=== PATIENT | female | born 1985 ===

== ENCOUNTER 2017-07-02 08:24 | Inpatient (IN) | payer OTHER ==
[2017-07-02 08:35] VITALS: BMI 25.0
[2017-07-02] MEDS ORDERED: AMPicillin 2 GM in Sodium Chloride 0.9% 100 ML IVPB ONE (08:41)
[2017-07-02] MEDS ORDERED: AMPicillin 1 GM in Sodium Chloride 0.9% 100 ML IVPB SCH (09:00)
[2017-07-02 09:40] LABS: BASO % 0.3 % (0.0-2.0); EOS % 0.2 % (0.0-4.0); HEMATOCRIT 39.5 % (34.0-47.0); LYMPH # 1.5 K/uL (1.0-4.3); LYMPH % 12.8 % (20.0-40.0); MEAN CELL VOLUME 102.3 fl (81.0-99.0); MEAN CORPUSCULAR HEMOGLOBIN 35.6 pg (27.0-31.0); MEAN CORPUSCULAR HGB CONC 34.8 g/dL (33.0-37.0); MEAN PLATELET VOLUME 8.7 fl (7.2-11.7); MONO # 0.4 K/uL (0.0-0.8); MONO % 3.3 % (0.0-10.0); NEUT # 9.5 K/uL (1.8-7.0); NEUT % 83.4 % (50.0-75.0); NRBC % 0.1 % (0.0-0.0); RED CELL DISTRIBUTION WIDTH 13.2 % (11.5-14.5); WHITE BLOOD COUNT 11.4 K/uL (4.8-10.8)
[2017-07-02] MEDS ORDERED: Lactated Ringer's 1,000 ML IV SCH (11:45)
--- NOTE | 2017-07-02 13:16 | OBADHP ---
Datetime: 07/02/2017 09:30 Admit Comment, IP Provider: On 07/01 at 0800 patient states "trickling of fluid" that she again felt at noon and 1730. In office confirmed rupture of membranes with +ferning and vaginal pooling. No s/s of infection. Pt having irregular contractions. Sent home, pt presents on 07/02 stating contractions every 6-8 mins since 0300. Pelvic Type - PN: Adequate Extremities - PN: Normal Abdomen - PN: Normal Back - PN: Normal Breast - PN: Normal Lungs - PN: Normal Heart - PN: Normal Thyroid - PN: Normal Neurologic - PN: Normal HEENT - PN: Normal General - PN: Normal Weight - Estimated: 3600 Presentation-Admit: Vertex FHR - Baseline A Provider: 150 Amniotic Fluid Color, Provider: Clear Membranes, Provider: Ruptured Gestation - Est Wks by US: 39.3 IP Chief Complaint: Uterine contractions NICHD Variability Prov Fetus A: Moderate 6-25bpm NICHD Accel Fetus A IP Provider: 15X15 FHR Category Provider Fetus A: Category I NICHD Decel Fetus A IP Provider: None Dilatation, Provider: 6 Effacement, Provider: 100 Station, Provider: -1 Genitourinary Exam: Normal DTRs - PN: Normal EGA AdmitDate IP: 39.3 IP Adm Impression: Term, intrauterine IP Admit Plan: Initiate labor protocol
[2017-07-02] MEDS ORDERED: Oxytocin 30 units/LR 500ML 30 U/500 ML BAG IV ONE (13:17)
--- NOTE | 2017-07-02 13:24 | OBPN ---
Datetime: 07/02/2017 11:15 IP Progress Impression: Normal progression of labor IP Progress Plan: Continue present management IP Progress Note Comment: Patient out of tub and using nitrous oxde intermittently. Datetime: 07/02/2017 09:30 IP Procedures: Sterile Vag Exam Membranes, Provider: Ruptured Amniotic Fluid Color, Provider: Clear FHR - Baseline A Provider: 150 Gestation - Est Wks by US: 39.3 Weight - Estimated: 3600 Presentation-Admit: Vertex Vital Signs Provider: Within Normal Limits NICHD Accel Fetus A IP Provider: 15X15 FHR Category Provider Fetus A: Category I NICHD Variability Prov Fetus A: Moderate 6-25bpm Dilatation, Provider: 6 Effacement, Provider: 100 Station, Provider: -1 NICHD Decel Fetus A IP Provider: None
--- NOTE | 2017-07-02 13:27 | OBPN ---
Datetime: 07/02/2017 11:15 IP Progress Note Comment: Patient out of tub into bed and using nitrous oxde intermittently.
[2017-07-02] MEDS ORDERED: Oxytocin 30 UNITS in Sodium Chloride 0.9% 500 ML IV SCH (13:30)
[2017-07-02] MEDS ORDERED: Lidocaine 1% Inj (20ml) ONE (17:04)
--- NOTE | 2017-07-02 17:55 | OBDS ---
DELIVERY PERSONNEL Nurse [employer] Certified: Chanel Perrin CNM [employer]: Mary Hopson RN MATERNAL INFORMATION Delivery Anesthesia: Local Medications in Delivery: Ampcillin Estimated Blood Loss (ml): 350 Placenta Cultured: No Maternal Complications: None Provider Comments: SROM @0800 x 32 hours. Viable male delivered under no anesthesia. wit h compound presentation of left hand over intact perineum in TONI. Shoulders and body delivered with m aternal effort. Pitocin IV administered for active management of the third stage. Delayed cord clampi ng for 4 mins. Cord blood obtained from 3VC. to maternal abdomen. Placenta delivered. Lacerati on repaired as stated above. EBL 350cc. LABOR SUMMARY EDC: 07/06/2017 00:00 No. Babies in Womb: 1 Labor Anesthesia: None LABOR INFORMATION Reason for Induction: Not Applicable Onset of Labor: 07/01/2017 08:00 Complete Dilatation: 07/02/2017 15:15 Oxytocin: N/A Group B Beta Strep: Negative (Annotations: 06/13/2017) Steroids Given: None Reason Steroids Not Administered: Not Applicable MEMBRANES Membranes Rupture Method: Spontaneous Rupture of Membranes: 07/01/2017 08:00 Length of Rupture (hrs): 32.75 Amniotic Fluid Color: Clear Amniotic Fluid Amount: Moderate Amniotic Fluid Odor: Normal STAGES OF LABOR Stage 1 hrs: 31 Stage 1 min: 15 Stage 2 hrs: 1 Stage 2 min: 30 Stage 3 hrs: 0 Stage 3 min: 11 Total Time in Labor hrs: 32 Total Time in Labor min: 56 VAGINAL DELIVERY Episiotomy: None Laceration Extension: N/A Other Laceration: right sub labial laceration Laceration Repair: Yes Laceration Repair Note: Right sub labial tear identified. Lidocaine cream applied and 6 cc of 1% lid ocaine injected. Repaired tear with 3-0 vicryl for approximation of tissue. Initial Vag Sponge Count: 10 Final Vag Sponge Count: 10 Initial Vag Sharps Count: 3 Final Vag Sharps Count: 3 Sponge Count Correct: Yes Sharps Count Correct: Yes BABY A INFORMATION Delivery Date/Time: 07/02/2017 16:45 Method of Delivery: Vaginal Born in Route : No : N/A Forceps: N/A Vacuum Extraction: N/A Shoulder Dystocia : No ASSISTED DELIVERY BABY A Station Vacuum/Forcep Apply: SHOULDER DYSTOCIA BABY A Infant Delivery Date/Time: 07/02/2017 16:45 PRESENTATION/POSITION BABY A Presentation: Cephalic PLACENTA INFORMATION BABY A Placenta Delivery Time : 07/02/2017 16:56 Placenta Method of Delivery: Spontaneous Placenta Status: Delivered SCORES BABY A Heart Rate 1 min: >100 bpm Resp Effort 1 min: Good Cry Reflex Irritability 1 min: Cough or Sneeze or Pulls Away Muscle Tone 1 min: Active Motion Color 1 min: Body [place], Extremities Blue Resuscitation Effort 1 min: Tactile Stimulation SCORE 1 MIN: 9 Heart Rate 5 min: >100 bpm Resp Effort 5 min: Good Cry Reflex Irritability 5 min: Cough or Sneeze or Pulls Away Muscle Tone 5 min: Active Motion Color 5 min: Body [place], Extremities Blue Resuscitation Effort 5 min: N/A SCORE 5 MIN: 9 INFORMATION BABY A Gestational Age at Delivery: 39.0 Gestational Status: Term Infant Outcome : Liveborn Condition : Stable Infant Sex: Male CORD INFORMATION BABY A No. Cord Vessels: 3 Nuchal Cord : N/A Cord Blood Taken: Yes
[2017-07-02] MEDS ORDERED: Benzocaine/Menthol SPRAY TOP PRN (19:07)
[2017-07-02] MEDS: Benzocaine/Menthol SPRAY TOP PRN (22:02)
[2017-07-03 06:53] LABS: BASO % 0.2 % (0.0-2.0); EOS % 0.3 % (0.0-4.0); HEMATOCRIT 32.4 % (34.0-47.0); LYMPH % 12.1 % (20.0-40.0); MEAN CELL VOLUME 102.8 fl (81.0-99.0); MEAN CORPUSCULAR HGB CONC 35.1 g/dL (33.0-37.0); MEAN PLATELET VOLUME 8.3 fl (7.2-11.7); MONO # 0.8 K/uL (0.0-0.8); MONO % 5.2 % (0.0-10.0); NEUT # 13.3 K/uL (1.8-7.0); NEUT % 82.2 % (50.0-75.0); NRBC % 0.1 % (0.0-0.0); RED CELL DISTRIBUTION WIDTH 13.6 % (11.5-14.5); WHITE BLOOD COUNT 16.2 K/uL (4.8-10.8)
--- NOTE | 2017-07-03 14:19 | OBDS ---
DELIVERY PERSONNEL Nurse Environmental Health Nurse Certified: Chanel Perrin CNM Clinical Informaticist: Mary Hopson RN MATERNAL INFORMATION Delivery Anesthesia: Local Medications in Delivery: Ampcillin Estimated Blood Loss (ml): 350 Placenta Cultured: No Maternal Complications: None RN Comments: patient delivered viable male. baby was clamped and placed on mother's chest for skin to skin. pt was repaired for erik lac. pitocin 20units infusing and cytotec 400mcg g iven PO. infant remained in stable condition, apgars were 9 and 9. patient remained in stable condition, VSS. Provider Comments: SROM @0800 x 32 hours. Viable male infant delivered under no anesthesia. wit h compound presentation of left hand over intact perineum in TONI. Shoulders and body delivered with m aternal effort. Pitocin IV administered for active management of the third stage. Straight catheter d rained 200 cc of urine. Delayed cord clamping for 4 mins. Cord blood obtained from 3VC. to mat ernal abdomen. Placenta delivered. Laceration repaired as stated above. EBL 350cc. LABOR SUMMARY EDC: 07/06/2017 00:00 EDC: 07/06/2017 00:00 No. Babies in Womb: 1 Labor Anesthesia: None LABOR INFORMATION Reason for Induction: Not Applicable Onset of Labor: 07/01/2017 08:00 Complete Dilatation: 07/02/2017 15:15 Oxytocin: N/A Group B Beta Strep: Negative (Annotations: 06/13/2017) Steroids Given: None Reason Steroids Not Administered: Not Applicable MEMBRANES Membranes Rupture Method: Spontaneous Rupture of Membranes: 07/01/2017 08:00 Length of Rupture (hrs): 32.75 Amniotic Fluid Color: Clear Amniotic Fluid Amount: Moderate Amniotic Fluid Odor: Normal STAGES OF LABOR Stage 1 hrs: 31 Stage 1 min: 15 Stage 2 hrs: 1 Stage 2 min: 30 Stage 3 hrs: 0 Stage 3 min: 11 Total Time in Labor hrs: 32 Total Time in Labor min: 56 VAGINAL DELIVERY Episiotomy: None Laceration Extension: N/A Other Laceration: right sub labial laceration Laceration Repair: Yes Laceration Repair Note: Right sub labial tear identified. Lidocaine cream applied and 6 cc of 1% lid ocaine injected. Repaired tear with 3-0 vicryl for approximation of tissue. Initial Vag Sponge Count: 10 Final Vag Sponge Count: 10 Initial Vag Sharps Count: 3 Final Vag Sharps Count: 3 Sponge Count Correct: Yes Sharps Count Correct: Yes BABY A INFORMATION Delivery Date/Time: 07/02/2017 16:45 Method of Delivery: Vaginal Born in Route : No : N/A Forceps: N/A Vacuum Extraction: N/A Shoulder Dystocia : No ASSISTED DELIVERY BABY A Station Vacuum/Forcep Apply: Station Vacuum/Forcep Apply: Station Vacuum/Forcep Apply: Station Vacuum/Forcep Apply: Station Vacuum/Forcep Apply: Station Vacuum/Forcep Apply: Station Vacuum/Forcep Apply: Station Vacuum/Forcep Apply: Station Vacuum/Forcep Apply: Station Vacuum/Forcep Apply: Station Vacuum/Forcep Apply: SHOULDER DYSTOCIA BABY A Delivery Date/Time: 07/02/2017 16:45 PRESENTATION/POSITION BABY A Presentation: Cephalic PLACENTA INFORMATION BABY A Placenta Delivery Time : 07/02/2017 16:56 Placenta Method of Delivery: Spontaneous Placenta Status: Delivered SCORES BABY A Heart Rate 1 min: >100 bpm Resp Effort 1 min: Good Cry Reflex Irritability 1 min: Cough or Sneeze or Pulls Away Muscle Tone 1 min: Active Motion Color 1 min: Body [place], Extremities Blue Resuscitation Effort 1 min: Tactile Stimulation SCORE 1 MIN: 9 Heart Rate 5 min: >100 bpm Resp Effort 5 min: Good Cry Reflex Irritability 5 min: Cough or Sneeze or Pulls Away Muscle Tone 5 min: Active Motion Color 5 min: Body [place], Extremities Blue Resuscitation Effort 5 min: N/A SCORE 5 MIN: 9 INFANT INFORMATION BABY A Gestational Age at Delivery: 39.0 Gestational Status: Term Infant Outcome : Liveborn Condition : Stable Sex: Male WEIGHT/LENGTH BABY A Infant Birthweight (gms): 3310 Infant Weight (lb): 7 Weight (oz): 5 CORD INFORMATION BABY A No. Cord Vessels: 3 Nuchal Cord : N/A Cord Blood Taken: Yes
--- NOTE | 2017-07-03 15:17 | OBPPN ---
Datetime: 07/03/2017 15:07 PP Pain Prov: Within normal limits PP Nausea Prov: Denies PP Flatus Prov: Yes PP BM Prov: No PP Breasts Prov: Normal PP Heart Prov: Normal PP Lungs Prov: Normal PP Abdomen/Uterus Prov: Normal PP Lochia Prov: Normal PP Vulva/Perineum Prov: Normal PP CVA Tenderness Prov: Not Done PP Extremities Prov: Normal PP C/S Incision Prov: Not Applicable PP Progress Prov: Normal PP Comments Phys Exam Prov: Uterus is firm and 2 fingerbreaths below the umbilicus. No cracking of n ipples present. PP Impression Prov: Normal progression PP Plan Prov: Continue present management; consult; Discharge PP Plan Other Prov: pt requesting database reporting consultant for latch pain; DC in AM PP Progress Note Prov: Patient is ambulating and denies dizziness or SOB with activity or rest. Jacqueline stfeeding well on both breasts with mildly painful latch and requesting database reporting consultant to asses s. Encouraged to empty bladder and breastfeed every 2-3 hours. IP PP Procedures: None Vital Signs Provider PP: Reviewed; Within Normal Limits
--- NOTE | 2017-07-03 15:27 | OBDCSUM ---
Datetime: 07/03/2017 15:16 Discharged to, Provider: Home Follow up at, Provider: [facility] [place] Disch Instr Activity: Normal activity Disch Instr Diet: Regular Discharge Instructions, Provider: Routine instructions given Discharge Diagnosis, Provider: Term Delivered; PROM - Indicate X Hours Discharge Time: 07/04/2017 08:00 Follow up in weeks, Provider: 1 week; 6 weeks Disch Referrals: None Contraception discussed, Prov: Yes Disch Activity Restrictions: No exercising; No lifting; No driving; Minimize stair-climbing; No sexu al activity; Nothing in vagina - Thomas, tampons, douche Discharge Comment, Provider: D/C teaching completed. Reviewed s/s of mastitis and Depress ion. Encouraged to continue taking PNVs and Vit D 4000IU/day. Educated on normal PP bleeding and to t valeria Ibuprofen 800mg q6-8 hours as needed. Reviewed when to call [facility], such as fever, increasing in ble eding, PPD, and concerns. RTO in 1 week. Discharge Diagnosis Prov Other: PROM 19 hours Contraception after Delivery: Undecided
[2017-07-04] MEDS: Benzocaine/Menthol SPRAY TOP PRN (09:19)
[2017-07-04 19:37] VITALS: BP 112/73; PULSE 72; RESP 19; TEMP 98.6
== END 2017-07-04 14:15 | disposition home or self-care (01) | DRG 775 ==
LOC: H.EROB2 08:24 → H.L&D 08:35 → H.OB/GYN 20:00
PROC: 10E0XZZ Delivery of Products of Conception, External Approach (ICD-10-PCS; principal; 2017-07-02)
PROC: 0HQ9XZZ Repair Perineum Skin, External Approach (ICD-10-PCS; 2017-07-02)
PROC: 4A1HXCZ Monitoring of Products of Conception, Cardiac Rate, External Approach (ICD-10-PCS; 2017-07-02)
DX: O32.6XX0 Maternal care for compound presentation, not applicable or unspecified (principal); O70.0 First degree perineal laceration during delivery; Z37.0 Single live birth; Z3A.39 39 weeks gestation of pregnancy